=== PATIENT | female | born 1945 | race Caucasian/White ===

== ENCOUNTER 2020-04-09 10:42 | Observation (INO) | payer MEDICARE, MEDICAID ==
[~2020-04-09] VITALS: Ht 162.6 cm; Wt 55.5 kg
[2020-04-09 11:23] LABS: BASOPHILS % (AUTO) 0.4 % (0-1); EOSINOPHILS # (AUTO) 0.1 X10'3 (0-0.9); EOSINOPHILS % (AUTO) 2.8 % (0-6); HEMATOCRIT 34.3 % (35.0-45.0); HEMOGLOBIN 11.4 g/dl (12.0-16.0); LYMPHOCYTES # (AUTO) 0.4 X10'3 (1.1-4.8); LYMPHOCYTES % (AUTO) 8.3 % (21-51); MEAN CORPUSCULAR HEMOGLOBIN 30.1 PG (27.0-31.0); MEAN CORPUSCULAR HGB CONC 33.3 g/dL (33.0-36.5); MEAN CORPUSCULAR VOLUME 90.4 FL (78-98); MEAN PLATELET VOLUME 8.7 FL (7.4-10.4); MONOCYTES # (AUTO) 0.5 X10'3 (0-0.9); NEUTROPHILS # (AUTO) 4.1 X10'3 (1.8-7.7); NEUTROPHILS % (AUTO) 79.5 % (42-75); PLATELET COUNT 208 X10'3 (140-440); RED BLOOD COUNT 3.79 X10'6 (4.20-5.60); RED CELL DISTRIBUTION WIDTH 13.8 % (11.5-14.5); WHITE BLOOD COUNT 5.1 X10'3 (4.5-11.0)
[2020-04-09] MEDS ORDERED: normal saline 1000ML IV soln IVB ONE (12:00)
[2020-04-09 12:05] LABS: ALANINE AMINOTRANSFERASE 21 U/L (12-78); ALBUMIN 3.7 G/DL (3.4-5.0); ALBUMIN/GLOBULIN RATIO 1.1 (1.1-1.5); ALKALINE PHOSPHATASE 82 IU/L (46-116); ANION GAP 5 (8-16); ASPARTATE AMINO TRANSFERASE 18 U/L (10-37); BILIRUBIN,TOTAL 0.3 MG/DL (0.1-1.0); BLOOD UREA NITROGEN 20 MG/DL (7-18); BUN/CREATININE RATIO 19.2 (6.6-38.0); CALCIUM 9.4 MG/DL (8.5-10.1); CHLORIDE 101 MMOL/L (99-107); CREATININE 1.04 MG/DL (0.40-0.90); GLUCOSE 101 MG/DL (70-104); POTASSIUM 4.1 MMOL/L (3.5-5.1); SODIUM 135 MMOL/L (135-145); TOTAL CARBON DIOXIDE 29.3 MMOL/L (24-32); TOTAL PROTEIN 7.2 G/DL (6.4-8.2); eGFR 52 ML/MIN
[2020-04-09] MEDS ORDERED: SUMA50TA17 PO (12:55)
[2020-04-09] MEDS ORDERED: DULO60CA65 PO (12:55)
[2020-04-09] MEDS ORDERED: LEVO88TA2 PO (12:55)
[2020-04-09] MEDS ORDERED: METF-950 PO (12:55)
[2020-04-09] MEDS ORDERED: TOPI25TA49 PO (12:55)
[2020-04-09] MEDS ORDERED: ATOR20TA66 PO (12:55)
[2020-04-09] MEDS ORDERED: PILO5TAB10 PO (12:55)
[2020-04-09] MEDS ORDERED: LEVO75TA PO (12:55)
[2020-04-09] MEDS ORDERED: TRAZ-256 PO (12:55)
[2020-04-09] MEDS ORDERED: LORA10TA7 PO (13:06)
[2020-04-09] MEDS ORDERED: ASCO250T22 PO (13:06)
[2020-04-09] MEDS ORDERED: OMEG1CAP46 PO (13:06)
[2020-04-09] MEDS ORDERED: BUTA-281 PO (13:06)
[2020-04-09] MEDS ORDERED: ASPI-612 PO (13:06)
[2020-04-09] MEDS ORDERED: ZINC220C11 PO (13:06)
[2020-04-09] MEDS ORDERED: magnesium hydroxide 30ml (MOM) UD suspension PO PRN (13:30)
[2020-04-09] MEDS ORDERED: acetaminophen 325mg tablet PO PRN (13:30)
[2020-04-09] MEDS ORDERED: ondansetron/PF 4mg/2ml inj IV PRN (13:30)
[2020-04-09] MEDS ORDERED: mag hydrox/Alum hydrox/simeth 30ml oral suspension PO PRN (13:30)
[2020-04-09] MEDS: normal saline 1000ml 1,000 ML IV SCH ×2 (14:31→21:31)
--- NOTE | 2020-04-09 14:45 | NUR ---
Patient in room ED 8. I have received report from CLAUDINE Kunz RN and had the opportunity to ask questions and assume patient care.
[2020-04-09 15:00] VITALS: BP 137/65
--- NOTE | 2020-04-09 15:00 | NUR ---
RECEIVED PT INTO ROOM 313,ORIENTED TO SURROUNDINGS,IRENE. AMB TO BR WITHOUT DIZZINESS,V/S STABLE,NSR ON MONITER
[2020-04-09] MEDS ORDERED: butalbital/acetaminophen/caffeine (Fioricet) tablet PO PRN (15:45)
[2020-04-09] MEDS ORDERED: SUMAtriptan 25 MG tablet PO PRN (15:45)
[2020-04-09] MEDS: topiramate 25mg tablet PO SCH ×2 (16:00→23:21)
--- NOTE | 2020-04-09 18:15 | NUR ---
Patient in room MED 313. I have received report from Raegan HASSAN and had the opportunity to ask questions and assume patient care.
--- NOTE | 2020-04-09 18:15 | NUR ---
Problems reprioritized. Patient report given, questions answered & plan of care reviewed with kay ardon.
[2020-04-09 18:30] VITALS: BP 138/64
[2020-04-09] MEDS ORDERED: traZODone 50mg tablet PO SCH (21:00)
[2020-04-09] MEDS: heparin, porcine 5000 units/ml vial SQ SCH (21:23)
[2020-04-09 22:30] VITALS: BP 123/64
[2020-04-10 02:30] VITALS: BP 110/51
[2020-04-10] MEDS: normal saline 1000ml 1,000 ML IV SCH (02:59)
--- NOTE | 2020-04-10 03:00 | NUR ---
Paged for pain medication.
[2020-04-10 04:03] LABS: CLARITY,URINE CLEAR (Clear); COLOR,URINE YELLOW (Yellow); GLUCOSE, URINE NEGATIVE (Neg); KETONES,URINE NEGATIVE (Neg); LEUKOCYTE ESTERASE ,URINE NEGATIVE (Neg); NITRITES, URINE NEGATIVE (Neg); OCCULT BLOOD,URINE NEGATIVE (Neg); PROTEIN,URINE NEGATIVE (Neg); UROBILINOGEN,URINE 0.2 E.U/dL (0.2-1.0)
[2020-04-10 04:04] LABS: UA COLLECTION TYPE OTHER
--- NOTE | 2020-04-10 04:14 | NUR ---
New order for norco5/325mg q4hrs prn pain received.
[2020-04-10] MEDS ORDERED: HYDROcodone/acetaminophen 5mg/325mg tablet PO PRN (04:15)
[2020-04-10 05:03] LABS: BASOPHILS % (AUTO) 0.8 % (0-1); EOSINOPHILS # (AUTO) 0.2 X10'3 (0-0.9); EOSINOPHILS % (AUTO) 5.8 % (0-6); HEMATOCRIT 29.2 % (35.0-45.0); HEMOGLOBIN 9.8 g/dl (12.0-16.0); LYMPHOCYTES # (AUTO) 0.5 X10'3 (1.1-4.8); LYMPHOCYTES % (AUTO) 13.1 % (21-51); MEAN CORPUSCULAR HEMOGLOBIN 30.4 PG (27.0-31.0); MEAN CORPUSCULAR HGB CONC 33.6 g/dL (33.0-36.5); MEAN CORPUSCULAR VOLUME 90.4 FL (78-98); MEAN PLATELET VOLUME 8.6 FL (7.4-10.4); MONOCYTES # (AUTO) 0.4 X10'3 (0-0.9); MONOCYTES % (AUTO) 10.2 % (2-12); NEUTROPHILS # (AUTO) 2.6 X10'3 (1.8-7.7); NEUTROPHILS % (AUTO) 70.1 % (42-75); PLATELET COUNT 148 X10'3 (140-440); RED BLOOD COUNT 3.24 X10'6 (4.20-5.60); RED CELL DISTRIBUTION WIDTH 13.6 % (11.5-14.5); WHITE BLOOD COUNT 3.8 X10'3 (4.5-11.0)
[2020-04-10 05:17] LABS: ALBUMIN 3.1 G/DL (3.4-5.0); ANION GAP 8 (8-16); BLOOD UREA NITROGEN 15 MG/DL (7-18); CALCIUM 8.5 MG/DL (8.5-10.1); CHLORIDE 106 MMOL/L (99-107); CREATININE 1.15 MG/DL (0.40-0.90); GLUCOSE 119 MG/DL (70-104); POTASSIUM 3.6 MMOL/L (3.5-5.1); SODIUM 139 MMOL/L (135-145); TOTAL CARBON DIOXIDE 25.5 MMOL/L (24-32); eGFR 46 ML/MIN
[2020-04-10 06:00] VITALS: BP 106/60
--- NOTE | 2020-04-10 06:15 | NUR ---
Patient in room MED 313. I have received report from SONYA LINDSAY and had the opportunity to ask questions and assume patient care.
[2020-04-10] MEDS ORDERED: levoTHYROXINE 88mcg tablet PO SCH (08:00)
[2020-04-10] MEDS ORDERED: ascorbic acid 500mg tablet PO SCH (08:00)
[2020-04-10] MEDS ORDERED: loratadine 10mg tablet PO SCH (08:00)
[2020-04-10] MEDS ORDERED: zinc sulfate 220mg capsule PO SCH (08:00)
[2020-04-10] MEDS: topiramate 25mg tablet PO SCH (08:00)
[2020-04-10] MEDS ORDERED: OMEGA-3/DHA/EPA/FISH OIL 1 EACH CAPSULE.DR PO SCH (08:00)
[2020-04-10] MEDS ORDERED: aspirin 81mg tablet.DR PO SCH (08:00)
[2020-04-10] MEDS ORDERED: atorvastatin 20mg tablet PO SCH (08:00)
[2020-04-10] MEDS ORDERED: duloxetine 30mg CAPSULE.DR PO SCH (08:00)
[2020-04-10] MEDS ORDERED: levoTHYROXINE 75mcg tablet PO SCH (08:00)
[2020-04-10] MEDS ORDERED: potassium Cl 20 mEq SR tablet PO STA (08:29)
[2020-04-10 09:02] LABS: MAGNESIUM 2.1 MG/DL (1.5-2.4)
[2020-04-10] MEDS: heparin, porcine 5000 units/ml vial SQ SCH (09:16)
[2020-04-10 10:00] VITALS: BP 116/60
--- NOTE | 2020-04-10 15:40 | NUR ---
PATIENT STABLE AND APPROPRIATE FOR DISCHARGE, TELE TAKEN OFF, IV TAKEN OUT, EDUCATION GIVEN, PATIENT TAKEN TO LOBBY BY WHEELCHAIR TO AN AWAITING CAR WHERE DAUGHTER WILL TAKE PATIENT HOME
[2020-04-11] MEDS ORDERED: levoTHYROXINE 88mcg tablet PO SCH (08:00)
== END 2020-04-10 15:40 | disposition home or self-care (01) ==
LOC: ER 10:42 → ED HOLD 13:26 → MED 3N 15:00
PROVIDERS: ADMIT Family Medicine; ATTEND Family Medicine
DX: R55 Syncope and collapse (principal); E03.9 Hypothyroidism, unspecified; E78.5 Hyperlipidemia, unspecified; G43.909 Migraine, unspecified, not intractable, without status migrainosus; C11.9 Malignant neoplasm of nasopharynx, unspecified; F32.9 Major depressive disorder, single episode, unspecified; M19.90 Unspecified osteoarthritis, unspecified site; Z92.21 Personal history of antineoplastic chemotherapy; Z92.3 Personal history of irradiation; Z90.710 Acquired absence of both cervix and uterus; Z96.651 Presence of right artificial knee joint; Z79.82 Long term (current) use of aspirin; Z79.899 Other long term (current) drug therapy; Z88.5 Allergy status to narcotic agent
CPT/HCPCS: 36415; 71045; 80048; 80053; 81003; 83735; 83880; 84443; 84484; 85025; 87081; 93005; 93306; 93880; 96360; 96361; 96372; 97161; 97530; 99285; G0378; J1644; J7030

== ENCOUNTER 2021-07-31 11:01 | Emergency (ER) | payer MEDICARE, MEDICAID ==
[~2021-07-31] VITALS: Ht 162.6 cm; Wt 53.6 kg
[~2021-07-31 11:01] MED LIST: ASCO250T22 PO; ASPI-612 PO; ATOR20TA66 PO; BUTA-281 PO; DULO60CA65 PO; LEVO75TA PO; LEVO88TA2 PO; LORA10TA7 PO; OMEG1CAP46 PO; SUMA50TA17 PO; TOPI25TA49 PO; TRAZ-256 PO; ZINC220C11 PO
[2021-07-31] MEDS ORDERED: SOTROVIMAB 500mg injection 500 MG in normal saline 100ml IV soln 100 ML IV ONE (11:30)
[2021-07-31] MEDS ORDERED: DEXA6TAB PO (13:05)
[2021-07-31] MEDS ORDERED: ALBU18HF2 INH (13:06)
[2021-07-31 14:03] VITALS: BP 153/72
== END 2021-07-31 14:06 | disposition home or self-care (01) ==
LOC: ER 11:02
DX: U07.1 COVID-19 (principal); Z88.5 Allergy status to narcotic agent; Z79.82 Long term (current) use of aspirin; Z79.899 Other long term (current) drug therapy
CPT/HCPCS: 71045; 99284; J3490; M0247; Q0247

== ENCOUNTER 2021-12-03 10:21 | Outpatient (CLI) | payer MEDICARE, MEDICAID ==
[~2021-12-03 10:21] MED LIST changes: +ALBU18HF2 INH; +DEXA6TAB PO
== END 2021-12-03 23:59 | disposition home or self-care (01) ==
LOC: RAD 10:21
PROVIDERS: ATTEND Nurse Practitioner
DX: L03.211 Cellulitis of face (principal); I65.23 Occlusion and stenosis of bilateral carotid arteries; M19.90 Unspecified osteoarthritis, unspecified site; Z98.1 Arthrodesis status
CPT/HCPCS: 70486